=== PATIENT | male | born 1960 | race Hispanic/Latino ===

== ENCOUNTER 2018-08-29 09:50 | Emergency (ER) | payer OTHER ==
[2018-08-29 10:02] VITALS: RESP 18; TEMP 98
--- NOTE | 2018-08-29 10:54 | ED PDOC ---
Arrival/HPI - General Chief Complaint: Abnormal Skin Integrity Time Seen by Provider: 08/29/18 09:52 Historian: Patient - History of Present Illness Narrative History of Present Illness (Text): 08/29/18 10:46 Patient is a 57yo M with PMH HLD and CAD presenting to the ED with a laceration. He reports washing dishes last night and accidentally brushed his L thumb against a knife. He applied pressure with a bandage overnight to try to stop the bleeding. Patient reports continued bleeding this morning upon removal of the dressing. He denies numbness, tingling, weakness, fever, chills, chest pain, or shortness of breath. Time/Duration: 24 hours Symptom Onset: Sudden Symptom Course: Unchanged Past Medical History - Infectious Disease Hx of Infectious Diseases: None - Cardiac Hx Cardiac Disorders: Yes (s/p stent 2009) Hx Coronary Artery Disease: Yes Hx Hyperlipemia: Yes - Psychiatric Hx Substance Use: No - Surgical History Hx Coronary Stent: Yes (x1) - Anesthesia Hx Anesthesia: Yes Hx Anesthesia Reactions: No Hx Malignant Hyperthermia: No Family/Social History Family/Social History: No Known Family HX Smoking Status: Never Smoked Hx Alcohol Use: No Hx Substance Use: No Allergies/Home Meds Allergies/Adverse Reactions: Allergies No Known Allergies Allergy (Verified 08/29/18 10:02) Home Medications: Home Meds Medication Instructions Recorded Confirmed Aspirin [Ecotrin] 162 mg PO DAILY 08/29/18 08/29/18 Fenofibrate 120 mg PO HS 08/29/18 08/29/18 Rosuvastatin Calcium [Crestor] 40 mg PO HS 08/29/18 08/29/18 Review of Systems - Review of Systems Constitutional: Normal. absent: Fatigue, Fevers Eyes: Normal ENT: Normal Respiratory: Normal. absent: SOB Cardiovascular: Normal. absent: Chest Pain Gastrointestinal: Normal. absent: Abdominal Pain, Diarrhea, Nausea, Vomiting Genitourinary Male: Normal Skin: Normal, Laceration Neurological: Normal. absent: Focal Weakness Endocrine: Normal Hemo/Lymphatic: Normal Psychiatric: Normal Physical Exam Vital Signs Reviewed: Yes Vital Signs Temp Pulse Resp BP Pulse Ox 08/29/18 09:55 98 F 72 18 124/85 98 Temperature: Afebrile Blood Pressure: Normal Pulse: Regular Respiratory Rate: Normal Appearance: Positive for: Well-Appearing Pain Distress: None Mental Status: Positive for: Alert and Oriented X 3 - Systems Exam Head: Present: Atraumatic, Normocephalic Pupils: Present: PERRL Extroacular Muscles: Present: EOMI Conjunctiva: Present: Normal Mouth: Present: Moist Mucous Membranes Neck: Present: Normal Range of Motion Respiratory/Chest: Present: Clear to Auscultation, Good Air Exchange. No: Respiratory Distress, Accessory Muscle Use Cardiovascular: Present: Regular Rate and Rhythm, Normal S1, S2. No: Murmurs, Rub, Gallop Abdomen: Present: Tenderness Upper Extremity: Present: Other Lower Extremity: Present: Normal Inspection. No: Edema (L thumb 1cm laceration with moderate bleeding) Neurological: Present: GCS=15, CN II-XII Intact, Speech Normal, Motor Func Grossly Intact, Normal Sensory Function Skin: Present: Laceration. No: Rashes Psychiatric: Present: Alert, Oriented x 3, Normal [facility]ight Medical Decision Making ED Course and Treatment: 08/29/18 11:22 1cm laceration repaired. Tdap ordered. - Procedure PROCEDURE NOTE (Text): 08/29/18 11:25 Area was cleaned and anesthetized with 1% lidocaine with epi. 4-0 ethilon was used and 2 sutures were placed. Patient tolerated procedure well. Disposition/Present on Arrival - Present on Arrival Any Indicators Present on Arrival: No History of DVT/PE: No History of Uncontrolled Diabetes: No Urinary Catheter: No History of Decub. Ulcer: No History Surgical Site Infection Following: None - Disposition Have Diagnosis and Disposition been Completed?: Yes Diagnosis: Laceration Disposition: HOME/ ROUTINE Disposition Time: 11:23 Condition: IMPROVED Discharge Instructions (ExitCare): Laceration Repair With Stitches (DC) Print Language: THAI Additional Instructions: If bleeding is persistent or you experience fever, chills, nausea, vomiting, n umbness or weakness, return to the emergency department. Please follow up with your primary care physician for routine care. Forms: [employer] (Nepali)
[2018-08-29] MEDS ORDERED: TDAP Vaccine 0.5 mL Syr IM ONE (10:55)
[2018-08-29 11:30] VITALS: BP 130/73; PULSE 70; O2SAT 100
== END 2018-08-29 11:30 | disposition home or self-care (01) ==
LOC: ED 09:50
DX: S61.012A Laceration without foreign body of left thumb without damage to nail, initial encounter (principal); W26.0XXA Contact with knife, initial encounter; Y93.G1 Activity, food preparation and clean up; Y99.0 Civilian activity done for income or pay; Z23 Encounter for immunization